=== PATIENT | male | born 1945 | race Caucasian/White ===

== ENCOUNTER 2018-02-01 12:49 | Day surgery (SDC) | payer MEDICARE, SELFPAY ==
[2018-02-01] VITALS (7 sets, daily range): BP systolic 120–144; BP diastolic 70–86; PULSE 84–105; RESP 14–18; TEMP 36.2–37.1; O2SAT 92–99; BMI 26.4
--- NOTE | 2018-02-01 15:12 | PM.PREOP ---
Pre-operative Note Interval Note Pre-op Check: Yes History & Physical Reviewed by Physician and Yes Exam Performed Changes: No
--- NOTE | 2018-02-01 15:12 | PM.OP.1 ---
Operative Date/Time/Diagnoses Date of procedure: 02/01/18 Time of procedure: 15:40 Pre-op diagnosis: left radius fracture nonunion, mild carpal tunnel syndrome Post-op diagnosis: same Procedure & Clinicians Procedure: left radius open Reduction and internal fixation left radius nonunion, left carpal tunnel release Same procedure as scheduled: Yes Indications: patient is a 72-year-old gentleman with a history of a left distal radius fracture which is not healing well and he is brought to the operating room for open reduction internal fixation. He also has a chronic numbness in his left middle and index finger and the plan is for carpal tunnel release. Surgeon: Lucia Richards [employer] Professional: Ivory Roche Anesthesia Type: General Operative Notes Findings: Nonunion left distal radius fracture with motion across the fracture site and significant callus, moderate compression in the carpal canal with some deformity of the median nerve Closure Type: primary Specimen(s): none sent Implants & Drains: hand innovation distal radius plate long Estimated Blood Loss (mL): 50 Blood products transfused: none Tourniquet time (min): 94 Procedure in detail: The patient was brought to the operating room. A high arm tourniquet was applied. Anesthesia was induced. A time-out was performed. Antibiotics were given. The patient's left upper extremity was prepped and draped in a standard sterile fashion. The tourniquet was elevated to 250 mm of mercury. An extensile incision was made along the volar aspect of the forearm and extended distally for a carpal tunnel release across the wrist crease. Dissection was carried out through skin and subcutaneous tissues. the transverse carpal ligament was meticulously released and the antebrachial fascia of the distal forearm was carefully released. The distal palmar nerve was meticulously protected. There was moderate compression across the carpal canal and fairly substantial thickening of the subcutaneous tissues. The flexor carpi radialis was carefully identified and mobilized. The radial artery was also gently mobilized radially and the muscle was carefully stripped off of the distal aspect of the radius after incising the fascia. The nonunion site was identified. It was carefully gently mobilized on the volar aspect of the bone. A small amount of callus was carefully removed in order to allow application of a volar plate. The radius was meticulously aligned using a towel bump to push the distal fragment more volar . A long volar radial plate was felt to be the appropriate plate based on the fracture pattern and I did look at the small fragment plate which was not felt to have adequate distal fixation sites. A long hand in innovation distal radius plate was carefully applied. Compression was achieved across the nonunion site. And I specifically placed a leg screw to further stabilize the fracture. Good quality fixation was achieved and the screw holes were filled. The reduction and screw location was carefully checked with fluoroscopy the fracture nonunion site was meticulously tested and noted to be stable. The wound was irrigated with normal saline. A small amount of callus that had been removed from the fracture site was carefully packed into the fracture site. The muscle was carefully had a pulled back over the plate and loosely closed. Tourniquet was deflated there was no significant bleeding. A few stitches were placed in the subcutaneous tissue. The wound was carefully irrigated. Marcaine was injected. The skin was closed loosely with interrupted nylon. The wound was dressed sterilely. he was placed in a removable brace. Complications: none Condition: stable Disposition: same day surgery Plan for aftercare: removable splint. Ok to do rom exercises. follow up in 10 days, no heavy lifting
[2018-02-01] MEDS: CEFAZOLIN VIAL 2 GM in SODIUM CHLORIDE 0.9% 100 ML 200 ML IV (15:37)
[2018-02-01] MEDS: LACTATED RINGERS 1,000 ML 42 ML IV (16:00)
--- NOTE | 2018-02-01 16:02 | SUR.OPER ---
Supine on padded OR bed, head on pillow, arms secured on padded arm board at <90 degrees abduction on right and hand table on left, legs uncrossed, safety belt at thigh, tape over blanket over lower legs.
[2018-02-01] MEDS: BUPIVACAINE 0.5% (PF) VIAL 30 ML INJ (17:20)
[2018-02-01] MEDS: HYDROCODONE/ACET 5/325 TABLET 1 TAB PO (19:00)
== END 2018-02-01 17:15 | disposition home or self-care (01) ==
PROVIDERS: Visit Provider Orthopaedic Surgery
PROC: (CPT 25400; principal; 2018-02-01 15:45)
DX: S52.502K Unspecified fracture of the lower end of left radius, subsequent encounter for closed fracture with nonunion (principal); G56.02 Carpal tunnel syndrome, left upper limb; I25.10 Atherosclerotic heart disease of native coronary artery without angina pectoris; Z87.891 Personal history of nicotine dependence; W18.30XD Fall on same level, unspecified, subsequent encounter
CPT/HCPCS: 25400; 64721; J0690; J1100; J2405; J2704; J3010